=== PATIENT | male | born 1955 | race Caucasian/White ===

== ENCOUNTER 2016-08-04 21:20 | Observation (INO) | payer OTHER ==
[~2016-08-04] VITALS: Ht 185.4 cm; Wt 129.3 kg
[~2016-08-04 21:20] MED LIST: ADDERALL10 MG PO; ALBUTEROL2 PUFFS/17 IN; ALBUTEROL2.5 MG/NEB IN; ASPIRIN 81MG TA81 MG PO; ATORVASTATIN CA20 M1 PO; CELEBREX100 MG PO; FLEXERIL10 MG PO; IBU800 MG PO; LEVOTHYROXIN0.125 MG PO; LEVOTHYROXIN0.137 M1 PO; PERCOCET1 TA1 PO; PROPAFENONE HC150 MG PO; TYLENOL W/CODEI1 TA1 PO; ZOLPIDEM 10MG T10 MG PO
[2016-08-04 21:23] VITALS: BP 175/72
[2016-08-04] MEDS ORDERED: PROMETHEGAN25 MG PO (21:31)
--- NOTE | 2016-08-04 21:38 | Emergency Room Report ---
History of Present Illness Time Seen by [id number] Presenting Problem in Triage Pt arrived:Walked Presenting Problem:C/O VOMITING AND DIARRHEA, REPORTS VOMITED SMALL AMT OF BLOOD X 1 C/O WEAKNESS Onset of symptoms date/time:07/31/16/ or onset unknown for:MEDICAL HX UNKNOWN Treatment Prior to Arrival: DR. ESMER VEGA AND [facility] [employer]END[employer] Provided by :PHYSICIAN Sepsis Risk Assessment: Temp: 98.2 B/P: 175/72 MAP: 106 Pulse: 102 Resp: 18 Recent fever? N Clinical Suspician of Infection? N Mental Status: 1 - Regular (Normal Baseline) Sepsis Risk:Low Sepsis Risk Have you (or family members/close friends) recently traveled outside the [place]? N If Yes, where/when: Have you had exposure to infectious disease within the past month? N TB? Other? Specify: Source patient, RN notes reviewed, family, old records Exam Limitations no limitations Comment pt with recent oral surg for cancer and has not felt well for a few days and had fever and was started on abx and today with vomiting - no rash Cardiac Chest Pain Chest pain indicative of cardiac No Timing/Duration this evening Severity moderate ALLERGIES Coded Allergies: No Known Allergies (02/24/16) Home Medications Active Scripts OXYCODONE HCL/ACETAMINOPHEN (Percocet 10-325 MG Tablet) 1 TAB PO QIDP PRN pain #15 TAB Prov: 02/24/16 Reported Medications Levothyroxine Sodium (Levothyroxine 0.125MG) 0.125 MG PO DAILY PROPAFENONE HCL (Propafenone HCl) 150 MG PO TID #90 Atorvastatin Calcium 20 MG PO DAILY #30 Levothyroxine Sodium (Levothyroxine 0.137MG) 0.137 MG PO DAILY #30 Zolpidem Tartrate (Zolpidem 10MG) 10 MG PO QHS #30 ASPIRIN (Aspirin) 81 MG PO DAILY PROMETHAZINE HCL (Promethegan) 25 MG RC QID #10 History Medical History General CAD? No Angina: No NH: No Hypertension? No Hyperlipidemia? No CHF? No DVT? No PE? No COPD? No Asthma? No Anemia? No GERD? No Gastric ulcers? No GI Bleed? No Hernia? No Thyroid Problems? No Hypothyroidism? Yes CVA? No Seizures? No Diabetes? No Renal Insuffiency? No End Stage Renal Disease? No UTI? No Stones? No BPH? No GB Disease: No Nephritic Syndrome? No Asplenia? No Hepatitis? No Sickle Cell Disease? No Arthritis? No Migraines? No Cataracts? No Glaucoma? No MRSA? No HIV? No TB? No Anxiety? No Depression? No Cancer? Yes Site: MOUTH More? No Immunization Hx DT/Tetanus 1-4 YRS Flu NEVER Pneumonia NEVER Surgical Hx Previous Surgery?Y L SHOULDER R HAND APPENDECTOMY L FOOT Family History Family Hx Diabetes Yes CAD No Hypertension No Hyperlipidemia No Cancer No TB No Social History Smoking Hx Smoker: Never Smoker Tobacco: No Type N/A Alcohol Alcohol: Yes Drugs none Review of Systems All Other Systems Reviewed and Negative Constitutional denies fever Eyes denies drainage ENT see HPI. denies: ear pain, epistaxis, throat pain. Respiratory denies cough, denies shortness of breath, denies wheezing Cardiovascular denies chest pain, denies syncope Gastrointestinal see HPI, denies diarrhea, nausea, vomiting Genitourinary denies: dysuria, frequency, hesitancy, hematuria. Musculoskeletal denies back pain, denies joint pain, denies joint swelling, denies neck pain Skin denies rash Psychiatric/Neurological denies headache, denies seizure Physical Exam Vital Signs Vital Signs Date Time Temp Pulse Resp B/P Pulse O2 O2 Flow FiO2 Ox Delivery Rate 08/05 0026 79 18 100/55 93 08/04 2359 79 18 126/77 94 08/04 2347 18 08/04 2332 85 20 130/59 94 08/04 2227 94 18 134/57 97 08/04 2123 98.2 102 18 175/72 95 - WBC >12,000 or <4,000 or 10% bands? 2 or more SIRS Criteria Met? B/P:126/77 MAP:106 Creatinine >2.0? UA output<0.5ml/kg/hr for 2 hrs? Platelet count >100,000? Lactate >2.0mmol/1? INR >1.2 or PTT > than 60 sec? Evidence of Organ Dysfunction? Provider documented clinical suspician of infection? N Sepsis Criteria Count: 1 Sepsis Risk: Low Sepsis Risk General Appearance no apparent distress Eye Exam - bilateral eye PERRL, bilateral eye EOMI Comment no icterus Ear, Nose, Throat s/p oral surg Neck non-tender Respiratory Status No: respiratory distress. 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 No Results/Orders Laboratory Tests 08/04/162139: Lactic Acid 1.2 08/04/162139: Sodium 137, Potassium 3.9, Chloride 103, Carbon Dioxide 21 L, BUN 13, Creatinine 1.1, Estimated Creat Clear 124, Estimated GFR (MDRD) 68, Glucose 126 H, Calcium 9.0, Total Bilirubin 0.6, AST 124 H, ALT 158 H, Alkaline Phosphatase 124 H, Total Protein 7.4, Albumin 3.0 L, Globulin 4.4 H, Albumin/ Globulin Ratio 0.7 L, WBC 10.2, RBC 4.46 L, Hgb 14.1, Hct 41.3 L, MCV 92.6, RDW 13.7, Plt Count 156, MPV 8.7, Gran % 84.8 H, Gran # 8.7 H, Lymphocytes % 9.1 L, Monocytes % 4.6, Eosinophils % 1.4, Basophils % 0.2, Lymphocytes # 0.9, Monocytes # 0.5, Eosinophils # 0.1, Basophils # 0.0, PUBS MCHC 34.2, MCH 31.7 H Current Medication Orders Sig/Sahil Start time Last Medication Dose Route Stop Time Status Admin Morphine Sulfate 4 MG ONCE ONE 08/04 2344 DC 08/04 IV 08/04 Promethazine HCl 12.5 MG ONCE ONE 08/04 2344 DC 08/04 IV 08/04 Sodium Chloride 1,000 ML .Q1H1M 08/04 2344 DC 08/04 IV 08/055 234 Sodium Chloride 10 ML PRN PRN 08/04 2344 AC IV 08/05 2334 Sodium Chloride 25 ML ONCE ONE 08/04 2344 DC 08/04 IV 08/049 2348 Promethazine HCl 0 .STK-MED ONE 08/04 2337 DC .ROUTE Morphine Sulfate 0 .STK-MED ONE 08/04 2336 DC .ROUTE Sodium Chloride 1,000 ML .STK-MED ONE 08/04 2336 DC IV Ondansetron HCl 4 MG ONCE ONE 08/04 2144 DC 08/04 IV 08/04 2145 215 Sodium Chloride 10 ML PRN PRN 08/04 2144 AC IV 08/05 2132 Sodium Chloride 1,000 ML .Q1H1M 08/04 2144 DC 08/04 IV 08/04 2245 215 Sodium Chloride 10 ML PRN PRN 08/04 2144 AC IV 08/05 2132 Ondansetron HCl 0 .STK-MED ONE 08/05 2135 DC .ROUTE Sodium Chloride 1,000 ML .STK-MED ONE 08/05 2135 DC IV Orders Procedure Date/time Status DIET-NOTHING BY MOUTH 08/05 B Active CULTURE, BLOOD 08/04 2137 Active URINALYSIS/COMPLETE 08/04 2137 Active LACTIC ACID 08/04 2137 Complete IV SALINE LOCK 08/04 2133 Active COMPLETE METABOLIC PANEL 08/04 2133 Complete CBC WITH AUTO DIFF 08/04 2133 Complete Departure Departure Time of Disposition 0104 Disposition DC Home or Self Care(routine) Clinical Impression Primary Impression: Vomiting Qualifiers: Vomiting type: unspecified Vomiting Intractability: non-intractable Nausea presence: with nausea Qualified Code: R11.2 - Nausea with vomiting, unspecified Condition STABLE Referrals Diego Olson MD (Family) Patient Instructions DI for Vomiting -- Adult Additional Instructions fluids and see pcp this am Discharge Counseling Counseled pt/family regarding diagnosis, test results, medications/RX, follow up needs ED Critical Care Critical Care No at 0105
[2016-08-04 22:01] LABS: HEMOGLOBIN 14.1 g/dL (14.1-18.0); LYMPH # 0.9 K/mm3 (0.7-4.5); LYMPH % 9.1 % (10-50)
[2016-08-05 10:29] VITALS: BP 120/64
[2016-08-05 10:45] LABS: LYMPH # 1.4 K/mm3 (0.7-4.5); LYMPH % 14.8 % (10-50)
--- NOTE | 2016-08-05 10:46 | PHARMACY CLINIC NOTE ---
Patient Demographics Patient Demographics Admission date: 08/05/16 Date: 08/05/16 Time: 1046 Allergies Coded Allergies: No Known Allergies (02/24/16) HEIGHT- FT: 6 IN: 1.00 K.276 VTE General Information Labs: Laboratory Tests 08/04 2140 Hematology Hgb (14.1 - 18.0 g/dL) 14.1 Hct (42.0 - 52.0 %) 41.3 L Plt Count (142 - 424 K/mm3) 156 Disclaimer The following section includes nursing documentation that has been pulled in for pharmacy review. VTE prophylaxis NQF [id number] VTE prophylaxis ordered? Yes Type of prophylaxis/treatment: TREE at 1043
[2016-08-05 11:13] VITALS: BP 120/64
[2016-08-05] MEDS ORDERED: PREDNISONE 20MG20 MG PO (11:26)
[2016-08-05] MEDS ORDERED: METOPROLOL SUCC25 M2 PO (11:30)
[2016-08-05] MEDS ORDERED: METOPROLOL SUCC25 M1 PO (11:30)
[2016-08-05] MEDS ORDERED: AMBIEN 10MG TAB10 MG PO (11:31)
[2016-08-05] MEDS ORDERED: AUGMENTIN 875-1 EACH PO (11:32)
[2016-08-05] MEDS ORDERED: NORCO 325 MG-51 TAB PO (11:32)
--- NOTE | 2016-08-05 14:31 | RADIOLOGY REPORT PS360 ---
CHEST(2 VIEWS-NOT PORTABLE) HISTORY: dehydration ORDERING PHYSICIAN: Diego Olson MD PATIENT AGE: 61 years COMPARISON: 05/31/2007 FINDINGS: The cardiomediastinal silhouette and pulmonary vascularity are within normal limits. The lungs are clear without infiltrates, suspicious nodules, or pleural effusions. No acute bony abnormalities. IMPRESSION: Negative chest, no acute finding
[2016-08-05 16:00] VITALS: BP 116/65
[2016-08-05 17:38] LABS: AEROMONAS NOT DETECTED (NOT DETECTE); ASTROVIRUS NOT DETECTED (NOT DETECTE); CYCLOSPORA CAYETANENSIS NOT DETECTED (NOT DETECTE); E COLI O157 NOT DETECTED (NOT DETECTE); ENTEROAGGREGATIVE E COLI NOT DETECTED (NOT DETECTE); ENTEROPATHOGENIC E COLI NOT DETECTED (NOT DETECTE); ENTEROTOXIGENIC E COLI NOT DETECTED (NOT DETECTE); NOROVIRUS NOT DETECTED (NOT DETECTE); SAPOVIRUS NOT DETECTED (NOT DETECTE); SHIGA-LIKE TOXIN PROD. E COLI NOT DETECTED (NOT DETECTE); SHIGELLA/ENTEROINVASIVE E COLI NOT DETECTED (NOT DETECTE); VIBRIO CHOLERAE NOT DETECTED (NOT DETECTE)
[2016-08-05 20:33] VITALS: BP 111/63
[2016-08-06 04:36] VITALS: BP 103/53
[2016-08-06 06:14] LABS: HEMOGLOBIN 12.2 g/dL (14.1-18.0); LYMPH # 1.2 K/mm3 (0.7-4.5); LYMPH % 16.5 % (10-50)
[2016-08-06 07:32] VITALS: BP 113/56
--- NOTE | 2016-08-06 07:51 | ACUTE CARE PROGRESS NOTE (QUA) ---
Progress Notes Subjective Date 08/06/16 Time 0750 Note Patient feels a little better but has not urinated spontaneously and continues to have significant amounts of diarrhea. PCR testing was unremarkable. On the positive side heart rate and blood pressure normalized. Lungs are clear, heart rate regular. Abdomen is soft and nontender. Objective Findings Last VS-Temp:97.7 B/P:103/53 Pulse:74 Resp:18 SaO2:96 ROOM AIR Last weight lbs:285 oz:0 K.276 Method:Floor Scales Assessment/Plan Problem List 1. Dehydration 2. Diarrhea 3. Tachycardia Patient condition Improving Plan: dehydration and tachycardia have resolved. Diarrhea still a problem. Given his antibiotic exposure I will begin Flagyl and probiotic This inpt stay is expected to cross 2 MNs from start of care No at 0751
[2016-08-06 15:41] VITALS: BP 113/61
[2016-08-06 19:29] VITALS: BP 126/55
[2016-08-07 03:26] VITALS: BP 116/58
[2016-08-07] MEDS ORDERED: FLAGYL500 M1 PO (07:22)
[2016-08-07] MEDS ORDERED: FLORASTOR250 M1 PO (07:22)
[2016-08-07] MEDS ORDERED: LOMOTIL 0.025 M1 TAB PO (07:23)
--- NOTE | 2016-08-07 07:24 | ACUTE CARE PROGRESS NOTE (QUA) ---
Progress Notes Subjective Date 08/07/16 Time 0723 Note Overall feeling better, diarrhea has essentially resolved this morning. Lungs clear, abdomen soft, nontender. Vital signs unremarkable the Assessment/Plan Problem List 1. Dehydration 2. Diarrhea 3. Tachycardia Patient condition Improving Plan: initiate discharge plan This inpt stay is expected to cross 2 MNs from start of care No at 0724
--- NOTE | 2016-08-07 07:25 | DISCHARGE SUMMARY STANDARD ---
Demographics Admit date: 08/05/16 Discharge date: 08/07/16 History of present illness History of present illness Patient was admitted from my office with diarrhea, dehydration and tachycardia, recently exposed to antibiotics and recently underwent surgery for head/neck cancer. Please see scanned H&P for details Hospital Course Hospital Course: Patient was admitted, IV fluids were given, fluid resuscitation accomplished. No problems with fluid infusions and hydration status improved very nicely. Flagyl and probiotics were started for his diarrhea issues. He improved in a very slow but stepwise fashion and this morning it finally resolved his diarrhea to a large extent. Will be discharged home on Flagyl, probiotics and Lomotil p.r.n., follow up with oncology. Diet advancement instructions were given. Discharge diagnoses Problem List 1. Dehydration 2. Diarrhea 3. Tachycardia Medications Medications: Discharge meds are as noted. Follow up Follow up in office in: 7 DAYS with: PARUL LYMAN at [phone]
[2016-08-07 08:00] VITALS: BP 132/61
[2016-08-07 10:09] VITALS: BP 132/61
--- OUTSIDE RECORDS SUMMARY | 2016-08-15 02:06 | External Medical Summary Rpt ---
Author Author [facility] Organization [facility] Address Unknown Phone Unavailable Care Team Providers Care Materials Management Supervisor Name Role Phone ELISABET, (REF) PCP [phone] Encounter [facility] [id number] Date(s): 06/25/16 - 07/02/16 [facility] [address] [place] [id number]- Discharge Disposition: IP Self Care / Home Attending Physician: ANDREZ STAFFORD MD-ELIZA Admitting Physician: ANDREZ STAFFORD MD-ELIZA Referring Physician: ANDREZ STAFFORD MD-ELIZA Reason for Visit MALIGNANT NEOPLASM OF PALATE, UNSPECIFIED Vital Signs Most recent 1 2 3 to oldest [Reference Range]: Temperature Axillary Axillary (07/02/16 Oral Source (07/02/16 4:00 AM) 12:00 AM) (07/01/16 7:00 PM) Temperature Fahrenheit Fahrenheit Fahrenheit Mode (07/02/16 4:00 AM) (07/02/16 12:00 (07/01/16 7:00 PM) AM) Temperature, 98.5 Deg F 98.4 Deg F 99.0 Deg F Fahrenheit (07/02/16 7:30 AM) (07/02/16 4:00 AM) (07/02/16 12:00 [96.8-99.7 AM) Deg F] Clinical 36.9 Deg C 36.9 Deg C 37.2 Deg C Temperature, (07/02/16 7:30 AM) (07/02/16 4:00 AM) (07/02/16 12:00 C AM) Heart Rate, 62 bpm 62 bpm 69 bpm Apical (07/02/16 9:36 AM) (07/02/16 9:36 AM) (07/02/16 5:50 AM) [60-100 bpm] Heart Rate 62 bpm 65 bpm 64 bpm (3/16/17 Monitored (07/02/16 7:30 AM) (07/02/16 4:00 AM) 12:00 AM) [60-100 bpm] Respiratory 16 Breaths/Min 18 Breaths/Min 16 Breaths/Min Rate [14-20 (07/02/16 7:30 AM) (07/01/16 7:30 PM) (07/01/16 3:30 PM) Breaths/Min] Blood 121/62 mmHg 137/61 mmHg 122/64 mmHg Pressure (07/02/16 7:30 AM) (07/02/16 4:00 AM) (07/02/16 12:00 [90-140/60-9 AM) 0 mmHg] Mean 80 83 82 (07/02/16 12:00 Arterial (07/02/16 7:30 AM) (07/02/16 4:00 AM) AM) Pressure (MAP)-BMDI Oxygen 98 % 96 % 95 % Saturation (07/01/16 8:00 PM) (06/30/16 7:00 PM) (06/30/16 8:39 AM) [94-100 %] Oxygen Room air Room air (07/01/16 Room air Therapy Mode (07/02/16 8:23 AM) 10:42 PM) (07/01/16 8:00 PM) Oxygen Flow 4 Liter/Min 3 Liter/Min 3 Liter/Min Rate (06/27/16 8:00 AM) (06/26/16 8:54 PM) (06/26/16 4:13 PM) FiO2 Nursing 21 % 21 % (06/28/16 3:38 PM) (06/28/16 8:11 AM) Height Measured Source (06/25/16 2:37 PM) Height Entry [place] Format (06/25/16 2:37 PM) Height/Lengt 73 Inch h URDU (06/25/16 2:37 PM) CLINICALHEIG 185.42 cm HT (06/25/16 2:37 PM) Weight Standing scale Source (06/25/16 2:37 PM) Weight Entry [place] Format (06/25/16 2:37 PM) Weight 307 lb Portuguese lb (06/25/16 2:37 PM) CLINICALWEIG 139.55 kg HT (06/25/16 2:37 PM) Body Surface 2.58 m2 Area (BSA) (06/25/16 2:37 PM) Body Mass 40.6 kg/m2 Index *>HHI* [19.0-24.0 (06/25/16 2:37 PM) kg/m2] [place] Body 79 kg Weight (06/25/16 2:37 PM) Problem List Condition Effective Status Health Informant Dates Status Atrial Active fibrillation (Confirmed) High Active cholesterol( Confirmed) HTN Active (hypertensio n)(Confirmed ) Hypothyroidi Active sm(Confirmed ) Mouth Active cancer(Confi rmed) Sleep Active apnea(Confir med) Torn Active meniscus(Con firmed) Allergies, Adverse Reactions, Alerts No Known Allergies Medications acetaminophen-oxyCODONE (acetaminophen-oxyCODONE 325 mg-7.5 mg oral tablet) 1-2 Tab, Oral, Every 4 Hours, As Needed, as needed for pain, Refills: 0 amoxicillin-clavulanate (Augmentin XR 1000 mg oral tablet, extended release)1 Tab, Oral, Two Times A Day, 10 Day(s), Refills: 0Ordering provider: ANDREZ STAFFORD MD-ELIZA chlorhexidine topical (Peridex 0.12% mucous membrane liquid)7 mL, Swish and Spit , Three Times A Day, (swish and spit; do not swallow), Refills: 0Ordering provider: ANDREZ STAFFORD MD-ELIZA levothyroxine (levothyroxine 137 mcg (0.137 mg) oral tablet)1 Tab, Oral, Every Day, Refills: 0 metoprolol (Metoprolol Tartrate 25 mg oral tablet) Oral, Two Times A Day, Refills: 0 PRAVAstatin (pravastatin 10 mg oral tablet) 1 Tab, Oral, Every Day, Refills: 0 propafenone (propafenone 150 mg oral tablet) Oral, Every 8 Hours, Refills: 0 zolpidem (Ambien 10 mg oral tablet)1 Tab, Oral, At Bedtime, As Needed, for sleep, Refills: 0 Results GENERAL CHEMISTRY Most recent 1 to oldest [Reference Range]: Sodium Level 139 mmol/L [136-146 (07/01/16 6:42 AM) mmol/L] Potassium 4.2 mmol/L Level (07/01/16 6:42 AM) [3.5-5.1 mmol/L] Chloride 102 mmol/L Level (07/01/16 6:42 AM) [102-112 mmol/L] Carbon 26 mmol/L Dioxide (07/01/16 6:42 AM) Level [21-32 mmol/L] Anion Gap 15 [9-20] (07/01/16 6:42 AM) Glucose 101 mg/dL Level (07/01/16 6:42 AM) [74-106 mg/dL] Blood Urea 9 mg/dL Nitrogen (07/01/16 6:42 AM) [7-22 mg/dL] Creatinine 0.90 mg/dL Level (07/01/16 6:42 AM) [0.70-1.30 mg/dL] eGFR 104 mL/min/1.73m2 [>=60 (07/01/16 6:42 AM) mL/min/1.73m 2] eGFR 86 mL/min/1.73m2 NonAfrican (07/01/16 6:42 AM) [>=60 mL/min/1.73m 2] Bun/Creatini 10.0 ne (07/01/16 6:42 AM) [8.0-20.0] Calcium 8.9 mg/dL Level (07/01/16 6:42 AM) [8.5-10.1 mg/dL] Potassium 4.1 mmol/L POC [3.5-4.9 (06/26/16 7:00 AM) mmol/L] HEMATOLOGY Most recent 1 to oldest [Reference Range]: WBC [4.2-9.1 11.5 K/uL K/uL] *HI* (07/01/16 6:42 AM) RBC 4.61 Million/uL [4.63-6.08 *LOW* Million/uL] (07/01/16 6:42 AM) Hgb 14.6 g/dL [13.7-17.5 (07/01/16 6:42 AM) g/dL] Hct 44.0 % [40.1-51.0 (07/01/16 6:42 AM) %] MCV 95.4 fL [79.0-94.8 *HI* fL] (07/01/16 6:42 AM) MCH 31.7 pg [25.6-32.2 (07/01/16 6:42 AM) pg] MCHC 33.2 Gram/dL [32.2-36.5 (07/01/16 6:42 AM) Gram/dL] Platelet 167 K/uL Count (07/01/16 6:42 AM) [163-369 K/uL] MPV 12.5 fL [9.4-12.4 *HI* fL] (07/01/16 6:42 AM) RDW 14.0 % [11.6-14.4 (07/01/16 6:42 AM) %] Neut % 79.4 % [34.0-71.0 *HI* %] (07/01/16 6:42 AM) Neut # 9.11 K/uL [1.56-6.13 *HI* K/uL] (07/01/16 6:42 AM) Lymph % 11.0 % [19.3-53.1 *LOW* %] (07/01/16 6:42 AM) Lymph # 1.26 x10(3)/uL [1.00-3.90 (07/01/16 6:42 AM) x10(3)/uL] [place] % 6.8 % [3.0-9.0 %] (07/01/16 6:42 AM) [place] # 0.78 K/uL [0.16-1.00 (07/01/16 6:42 AM) K/uL] Eos % 2.3 % [0.0-7.0 %] (07/01/16 6:42 AM) Eos # 0.26 x10(3)/uL [0.00-0.80 (07/01/16 6:42 AM) x10(3)/uL] Baso % 0.2 % [0.0-1.5 %] (07/01/16 6:42 AM) Baso # 0.02 x10(3)/uL [0.00-0.20 (07/01/16 6:42 AM) x10(3)/uL] Slide Review No (07/01/16 6:42 AM) IG# 0.04 x10(3)/uL [0.00-0.05 (07/01/16 6:42 AM) x10(3)/uL] IG% 0.30 % [0.00-0.60 (07/01/16 6:42 AM) %] ENDOCRINOLOGY Most recent 1 to oldest [Reference Range]: TSH 7.660 mcInt Units/mL [0.358-3.740 *HI* mcInt (07/01/16 6:42 AM) Units/mL] Immunizations No data available for this section Procedures Procedure Date Related Body Site Diagnosis left knee surgery; meniscus 02/18 and pateller 07/02 Social History Social History Response Type Smoking Status Never smoker Assessment and Plan Extracted from: Title: JF Daily Note Author: SERGIO CABAN, Date: 07/02/16 MD GWENDOLYN-INT SubjectiveHOSPITALIST / INTERNAL MEDICINE CONSULT:61 yr old M - underwent surgery for Oral cancer. We are asked to see for uncontrolled BP.Pt is awake and alert. is at bed side. No CP, No SOB. Quite frustrated for multiple other things. No fever, + Nausia, no vomitting.W 3 AUSEARELATED TO POST NASAL DRAINAGE+ FLATUSTOLERATING PO BUT POOR APPETITENO CP OR VITALE OR SOA OR BMth 16bp betterno cp or soano nausea W NAUSEA RELATED TO POST NASAL DRAINAGE + FLATUS TOLERATING PO BUT POOR APPETITE NO CP OR VITALE OR SOA OR BM th 07/02 bp better no cp or soa no nausea Health StatusAllergies:Allergic Reactions (Selected)No Known Allergies,Allergies (1) ActiveReactionNo Known AllergiesNone DocumentedCurrent medications: (Selected)Inpatient MedicationsOrderedAfrin 0.05% nasal spray: 2 [place], Nostrils Both, A3CLyuant: 5 mg, Oral, At Bedtime, PRN: SleepDextrose 5% with 0.45% NaCl 1,000 mL: 40 mL/Hr, IntraVENousFlorastor: 250 mg, Oral, BIDLopressor: 25 mg, Oral, BIDNorco 7.5 mg-325 mg oral tablet: 1 Tab, Oral, Q4H, PRN: Pain (Mild 1-3)Norvasc: 2.5 mg, Oral, DailyPRAVAstatin: 10 mg, Oral, DailyPepcid: 20 mg, IV Push, H83GCeyespul 5/325: 1.5 Tab, Oral, Q4H, PRN: Pain (Moderate 4-6)Peridex 0.12% mucous membrane liquid: 15 mL, Swish and Spit, QIDPhenergan: 12.5 mg, IV Push, Q6H, PRN: Nausea/VomitingZofran: 4 mg, Oral, Q6H, PRN: Nausea/Vomitingacetaminophen-HYDROcodone 325 mg-7.5 mg oral tablet: 2 Tab, Oral, Q4H, PRN: Pain (Moderate 4-6)ampicillin-sulbactam + Sodium Chloride 0.9% 100 mL: 3 Gram, 200 mL/Hr, IV Piggyback, V1OtwsEBGpld: 0.05 mg, Oral, TIDfentaNYL: 25 mcg, IV Push, Q30Min, PRN: Breakthrough PainhydrALAZINE: 10 mg, IV Push, Q6H, PRN: Hypertensionlabetalol: 5 mg, IV Push, Q10Min, PRN: Hypertensionlevothyroxine: 112 mcg, Oral, Dailylevothyroxine: 25 mcg, Oral, Dailymorphine: 2 mg, IV Push, Q1H, PRN: Pain (Moderate 4-6)morphine: 4 mg, IV Push, Q1H, PRN: Pain (Severe 7-10)oxyCODONE: 10 mg, Oral, Q4H, PRN: Breakthrough PainoxyCODONE: 5 mg, Oral, Q4H, PRN: Breakthrough Painpropafenone: 150 mg, Oral, S2Zoypqty chloride 0.9% injectable solution: 10 mL, IV Push, See Comment, PRN: Other (See Comment)Documented MedicationsDocumentedAmbien 10 mg oral tablet: 1 Tab, Oral, At Bedtime, PRN: for sleep, 0 Refill(s)Metoprolol Tartrate 25 mg oral tablet: Tab, Oral, BID, 0 Refill(s)acetaminophen-oxyCODONE 325 mg-7.5 mg oral tablet: Tab, Oral, Q6H, PRN: as needed for pain, 0 Refill(s)levothyroxine 137 mcg (0.137 mg) oral tablet: 1 Tab, Oral, Daily, 30 Tab, 0 Refill(s)pravastatin 10 mg oral tablet: 1 Tab, Oral, Daily, 30 Tab, 0 Refill(s)propafenone 150 mg oral tablet: Tab, Oral, Q8H, 0 Refill(s),Home Medications (6) Activeacetaminophen-oxyCODONE 325 mg-7.5 mg oral tablet , PRN, Oral, X1MJnhvux 10 mg oral tablet 10 mg = 1 Tab, PRN, Oral, At Bedtimelevothyroxine 137 mcg (0.137 mg) oral tablet 137 mcg = 1 Tab, Oral, DailyMetoprolol Tartrate 25 mg oral tablet , Oral, BIDpravastatin 10 mg oral tablet 10 mg = 1 Tab, Oral, Dailypropafenone 150 mg oral tablet , Oral, Q8H,Medications (27) ActiveScheduled: (12)amLODIPine 2.5 mg tab 2.5 mg 1 Tab, Oral, Dailyampicillin/sulbactam + NaCl 0.9% 100 mL 3 Gram, IV Piggyback, O4Ywhapucpbutlma 0.12% liq 15 mL 15 mL, Swish and Spit, QIDcloNIDine 0.1 mg tab 0.05 mg 0.5 Tab, Oral, TIDfamotidine 20 mg/2 mL inj 20 mg 2 mL, IV Push, Y78Wxfqpldcrzxwyk 112 mcg tab 112 mcg 1 Tab, Oral, Dailylevothyroxine 25 mcg tab 25 mcg 1 Tab, Oral, Dailymetoprolol tartrate 25 mg tab 25 mg 1 Tab, Oral, BIDoxymetazoline 0.05% nasal spray 15 mL 2 [place], Nostrils Both, C8DZDPFIpdbmgu sodium 10 mg tab 10 mg 1 Tab, Oral, Dailypropafenone 150 mg tab 150 mg 1 Tab, Oral, Y9Aekkntaukrvawn boulardii 250 mg cap 250 mg 1 Cap, Oral, BIDContinuous: (1)D5w/NaCl 0.45% 1,000 mL 1,000 mL, IntraVENous, 40 mL/HrPRN: (14)#NaCl 0.9% *FLUSH* inj 10 mL 10 mL, IV Push, See Commentacetaminophen/HYDROcodone 325/7.5 mg tab 2 Tab, Oral, I5Lpyvgdztmsfpai/HYDROcodone 325/7.5 mg tab 1 Tab, Oral, V5Tsvyrpcugppcxl/oxyCODONE 325/5 mg tab 1.5 Tab, Oral, D1PgxivqZXU 100 mcg/2 mL inj 25 mcg 0.5 mL, IV Push, T78LbkznilOQRURFE 20 mg/1 mL inj 10 mg 0.5 mL, IV Push, U1Aiqgbpgumm 20 mg/4 mL inj *SYRINGE* 5 mg 1 mL, IV Push, D46Vyjxqofpsup 2 mg/1 ml cpjt inj 2 mg 1 mL, IV Push, P6Amcsqnxzr 4 mg/1 mL cpjt inj 4 mg 1 mL, IV Push, U1Dhxygfkxrtsb 4 mg tab 4 mg 1 Tab, Oral, F2CfbvMQBONK 5 mg tab 10 mg 2 Tab, Oral, R1QrwcINXNTV 5 mg tab 5 mg 1 Tab, Oral, G1Nkbgqkzsdkxxf 25 mg/1 mL inj 12.5 mg 0.5 mL, IV Push, S5Qbspynxhi 5 mg tab 5 mg 1 Tab, Oral, At BedtimeProblem list:MedicalHTN (hypertension) / SNOMED CT 7785118462 / ConfirmedSleep apnea / SNOMED CT 769915002 / ConfirmedAtrial fibrillation / SNOMED CT 8949965610 / ConfirmedTorn meniscus / SNOMED CT 3619246885 / ConfirmedHigh cholesterol / SNOMED CT 90125124 / ConfirmedMouth cancer / SNOMED CT 416967180 / ConfirmedHypothyroidism / SNOMED CT 402473479 / Confirmed,Active Problems (7)Atrial fibrillation High cholesterol HTN (hypertension) Hypothyroidism Mouth cancer Sleep apnea Torn meniscus saccharomyces boulardii 250 mg cap 250 mg 1 Cap, Oral, BID Continuous: (1) D5w/NaCl 0.45% 1,000 mL 1,000 mL, IntraVENous, 40 mL/Hr PRN: (14) #NaCl 0.9% *FLUSH* inj 10 mL 10 mL, IV Push, See Comment acetaminophen/HYDROcodone 325/7.5 mg tab 2 Tab, Oral, Q4H acetaminophen/HYDROcodone 325/7.5 mg tab 1 Tab, Oral, Q4H acetaminophen/oxyCODONE 325/5 mg tab 1.5 Tab, Oral, Q4H fentaNYL 100 mcg/2 mL inj 25 mcg 0.5 mL, IV Push, Q30Min hydrALAZINE 20 mg/1 mL inj 10 mg 0.5 mL, IV Push, Q6H labetalol 20 mg/4 mL inj *SYRINGE* 5 mg 1 mL, IV Push, Q10Min morphine 2 mg/1 ml cpjt inj 2 mg 1 mL, IV Push, Q1H morphine 4 mg/1 mL cpjt inj 4 mg 1 mL, IV Push, Q1H ondansetron 4 mg tab 4 mg 1 Tab, Oral, Q6H oxyCODONE 5 mg tab 10 mg 2 Tab, Oral, Q4H oxyCODONE 5 mg tab 5 mg 1 Tab, Oral, Q4H promethazine 25 mg/1 mL inj 12.5 mg 0.5 mL, IV Push, Q6H zolpidem 5 mg tab 5 mg 1 Tab, Oral, At Bedtime Problem list: Medical HTN (hypertension) / SNOMED CT 5402905338 / Confirmed Sleep apnea / SNOMED CT 897004788 / Confirmed Atrial fibrillation / SNOMED CT 1221084380 / Confirmed Torn meniscus / SNOMED CT 3701781395 / Confirmed High cholesterol / SNOMED CT 08301879 / Confirmed Mouth cancer / SNOMED CT 165501679 / Confirmed Hypothyroidism / SNOMED CT 808187345 / Confirmed, Active Problems (7) Atrial fibrillation High cholesterol HTN (hypertension) Hypothyroidism Mouth cancer Sleep apnea Torn meniscus ObjectiveVS/MeasurementsVitals Signs (last 24 hrs) Last Charted Minimum MaximumTemp 98.5 (JUL 02 07:30)97.9 (JUL 01 11:15)99.4 (JUL 01 15:30)Apical HR 62 (JUL 02 09:36)62 (JUL 02 09:36)85 (JUL 01 21:41)Mon HR 62 (JUL 02 07:30)62 (JUL 02 07:30)67 (JUL 01 11:15)Resp Rate 16 (JUL 02 07:30)16 (JUL 01 11:15)18 (JUL 01 19:30)SBP 121 (JUL 02 07:30)121 (JUL 02 07:30)H 171 (JUL 01 11:15)DBP 62 (JUL 02 07:30)61 (JUL 02 04:00)H 94 (JUL 01 11:15)MAP 80 (JUL 02 07:30)80 (JUL 02 07:30)113 (JUL 01 11:15)SpO2 98 (JUL 01 20:00)98 (JUL 01 20:00)98 (JUL 01 20:00)General: Alert and oriented, No acute distress.Eye: Pupils are equal, round and reactive to light, Normal conjunctiva.HENT: Normocephalic, S/P Oral surgery.Neck: Supple, Non-tender, No jugular venous distention.Respiratory: Lungs are clear to auscultation, Respirations are non-labored, Breath sounds are equal.Cardiovascular: Normal rate, Regular rhythm, No gallop.Gastrointestinal: Soft, Non-tender, Non-distended, Normal bowel sounds.Musculoskeletal: Normal range of motion, No tenderness.Integumentary: Warm.Neurologic: Alert, Oriented, Normal motor function, No focal deficits.Psychiatric: Cooperative. Integumentary: Warm. Neurologic: Alert, Oriented, Normal motor function, No focal deficits. Psychiatric: Cooperative. Results Review No Radiology Results FoundNo qualifying data available Impression and PlanAssessment and Plan: Diagnosis.Accelerated HTN - Adjust Meds - Continue BBlocker and add 2.5 mg of Norvasc.P- A-Fib - now NSR - continue to monitor.HPL / Hypothyroid - continue home MedsOSA - Night use of C-PAPPLANoff of afrin so bp should be ok on usual home medsfollow up with pcp for bp check in 1-2 weeksd//w patient KOMLA - Night use of C-PAP PLAN off of afrin so bp should be ok on usual home meds follow up with pcp for bp check in 1-2 weeks d//w patient Extracted from: Title: JF Daily Note Author: SERGIO CABAN, Date: 07/01/16 MD GWENDOLYN-INT SubjectiveHOSPITALIST / INTERNAL MEDICINE CONSULT:61 yr old M - underwent surgery for Oral cancer. We are asked to see for uncontrolled BP.Pt is awake and alert. is at bed side. No CP, No SOB. Quite frustrated for multiple other things. No fever, + Nausia, no vomitting.W 3 /15NAUSEARELATED TO POST NASAL DRAINAGE+ FLATUSTOLERATING PO BUT POOR APPETITENO CP OR VITALE OR SOA OR BM W 3 /15 NAUSEA RELATED TO POST NASAL DRAINAGE + FLATUS TOLERATING PO BUT POOR APPETITE NO CP OR VITALE OR SOA OR BM Health StatusAllergies:Allergic Reactions (Selected)No Known Allergies,Allergies (1) ActiveReactionNo Known AllergiesNone DocumentedCurrent medications: (Selected)Inpatient MedicationsOrderedAfrin 0.05% nasal spray: 2 [place], Nostrils Both, E6NOipzcs: 5 mg, Oral, At Bedtime, PRN: SleepDextrose 5% with 0.45% NaCl 1,000 mL: 40 mL/Hr, IntraVENousLopressor: 25 mg, Oral, BIDNorco 7.5 mg-325 mg oral tablet: 1 Tab, Oral, Q4H, PRN: Pain (Mild 1-3)Norvasc: 2.5 mg, Oral, DailyPRAVAstatin: 10 mg, Oral, DailyPercocet 5/325: 1.5 Tab, Oral, Q4H, PRN: Pain (Moderate 4-6)Peridex 0.12% mucous membrane liquid: 15 mL, Swish and Spit, QIDPhenergan: 12.5 mg, IV Push, Q6H, PRN: Nausea/VomitingZofran: 4 mg, Oral, Q6H, PRN: Nausea/Vomitingacetaminophen-HYDROcodone 325 mg-7.5 mg oral tablet: 2 Tab, Oral, Q4H, PRN: Pain (Moderate 4-6)ampicillin-sulbactam + Sodium Chloride 0.9% 100 mL: 3 Gram, 200 mL/Hr, IV Piggyback, R8JbmvXVPpxc: 0.05 mg, Oral, TIDfentaNYL: 25 mcg, IV Push, Q30Min, PRN: Breakthrough PainhydrALAZINE: 10 mg, IV Push, Q6H, PRN: Hypertensionlabetalol: 5 mg, IV Push, Q10Min, PRN: Hypertensionlevothyroxine: 112 mcg, Oral, Dailylevothyroxine: 25 mcg, Oral, Dailymorphine: 2 mg, IV Push, Q1H, PRN: Pain (Moderate 4-6)morphine: 4 mg, IV Push, Q1H, PRN: Pain (Severe 7-10)oxyCODONE: 10 mg, Oral, Q4H, PRN: Breakthrough PainoxyCODONE: 5 mg, Oral, Q4H, PRN: Breakthrough Painpropafenone: 150 mg, Oral, S9Uiuvnor chloride 0.9% injectable solution: 10 mL, IV Push, See Comment, PRN: Other (See Comment)Documented MedicationsDocumentedAmbien 10 mg oral tablet: 1 Tab, Oral, At Bedtime, PRN: for sleep, 0 Refill(s)Metoprolol Tartrate 25 mg oral tablet: Tab, Oral, BID, 0 Refill(s)acetaminophen-oxyCODONE 325 mg-7.5 mg oral tablet: Tab, Oral, Q6H, PRN: as needed for pain, 0 Refill(s)aspirin 81 mg oral tablet: 1 Tab, Oral, Daily, 30 Tab, 0 Refill(s)levothyroxine 137 mcg (0.137 mg) oral tablet: 1 Tab, Oral, Daily, 30 Tab, 0 Refill(s)pravastatin 10 mg oral tablet: 1 Tab, Oral, Daily, 30 Tab, 0 Refill(s)propafenone 150 mg oral tablet: Tab, Oral, Q8H, 0 Refill(s),Home Medications (7) Activeacetaminophen-oxyCODONE 325 mg-7.5 mg oral tablet , PRN, Oral, H6LCyrbpo 10 mg oral tablet 10 mg = 1 Tab, PRN, Oral, At Bedtimeaspirin 81 mg oral tablet 81 mg = 1 Tab, Oral, Dailylevothyroxine 137 mcg (0.137 mg) oral tablet 137 mcg = 1 Tab, Oral, DailyMetoprolol Tartrate 25 mg oral tablet , Oral, BIDpravastatin 10 mg oral tablet 10 mg = 1 Tab, Oral, Dailypropafenone 150 mg oral tablet , Oral, Q8H,Medications (25) ActiveScheduled: (10)amLODIPine 2.5 mg tab 2.5 mg 1 Tab, Oral, Dailyampicillin/sulbactam + NaCl 0.9% 100 mL 3 Gram, IV Piggyback, T4Hnvjldxmdoygem 0.12% liq 15 mL 15 mL, Swish and Spit, QIDcloNIDine 0.1 mg tab 0.05 mg 0.5 Tab, Oral, TIDlevothyroxine 112 mcg tab 112 mcg 1 Tab, Oral, Dailylevothyroxine 25 mcg tab 25 mcg 1 Tab, Oral, Dailymetoprolol tartrate 25 mg tab 25 mg 1 Tab, Oral, BIDoxymetazoline 0.05% nasal spray 15 mL 2 [place], Nostrils Both, K6XTTXVTyhnoiy sodium 10 mg tab 10 mg 1 Tab, Oral, Dailypropafenone 150 mg tab 150 mg 1 Tab, Oral, D4RYzjqqahabb: (1)D5w/NaCl 0.45% 1,000 mL 1,000 mL, IntraVENous, 40 mL/HrPRN: (14)#NaCl 0.9% *FLUSH* inj 10 mL 10 mL, IV Push, See Commentacetaminophen/HYDROcodone 325/7.5 mg tab 2 Tab, Oral, S0Yntpibwtzmebnb/HYDROcodone 325/7.5 mg tab 1 Tab, Oral, L0Iorfqdtzpbseuu/oxyCODONE 325/5 mg tab 1.5 Tab, Oral, M0AkkqtbXQZ 100 mcg/2 mL inj 25 mcg 0.5 mL, IV Push, K15KxixgewYPWWZCX 20 mg/1 mL inj 10 mg 0.5 mL, IV Push, N3Flmzooenlg 20 mg/4 mL inj *SYRINGE* 5 mg 1 mL, IV Push, J07Ledphrqfvhc 2 mg/1 ml cpjt inj 2 mg 1 mL, IV Push, P7Hjacobpxv 4 mg/1 mL cpjt inj 4 mg 1 mL, IV Push, Y4Zmwazgoyvgse 4 mg tab 4 mg 1 Tab, Oral, T4PbltFSKWZR 5 mg tab 10 mg 2 Tab, Oral, T7QefpCXSMDJ 5 mg tab 5 mg 1 Tab, Oral, J1Sqmxoxyjgfzsx 25 mg/1 mL inj 12.5 mg 0.5 mL, IV Push, O7Mmvfdllpt 5 mg tab 5 mg 1 Tab, Oral, At BedtimeProblem list:MedicalHTN (hypertension) / SNOMED CT 6288663144 / ConfirmedSleep apnea / SNOMED CT 910295074 / ConfirmedAtrial fibrillation / SNOMED CT 4100463935 / ConfirmedTorn meniscus / SNOMED CT 3401782014 / ConfirmedHigh cholesterol / SNOMED CT 22747344 / ConfirmedMouth cancer / SNOMED CT 771386433 / ConfirmedHypothyroidism / SNOMED CT 741593273 / Confirmed,Active Problems (7)Atrial fibrillation High cholesterol HTN (hypertension) Hypothyroidism Mouth cancer Sleep apnea Torn meniscus Continuous: (1) D5w/NaCl 0.45% 1,000 mL 1,000 mL, IntraVENous, 40 mL/Hr PRN: (14) #NaCl 0.9% *FLUSH* inj 10 mL 10 mL, IV Push, See Comment acetaminophen/HYDROcodone 325/7.5 mg tab 2 Tab, Oral, Q4H acetaminophen/HYDROcodone 325/7.5 mg tab 1 Tab, Oral, Q4H acetaminophen/oxyCODONE 325/5 mg tab 1.5 Tab, Oral, Q4H fentaNYL 100 mcg/2 mL inj 25 mcg 0.5 mL, IV Push, Q30Min hydrALAZINE 20 mg/1 mL inj 10 mg 0.5 mL, IV Push, Q6H labetalol 20 mg/4 mL inj *SYRINGE* 5 mg 1 mL, IV Push, Q10Min morphine 2 mg/1 ml cpjt inj 2 mg 1 mL, IV Push, Q1H morphine 4 mg/1 mL cpjt inj 4 mg 1 mL, IV Push, Q1H ondansetron 4 mg tab 4 mg 1 Tab, Oral, Q6H oxyCODONE 5 mg tab 10 mg 2 Tab, Oral, Q4H oxyCODONE 5 mg tab 5 mg 1 Tab, Oral, Q4H promethazine 25 mg/1 mL inj 12.5 mg 0.5 mL, IV Push, Q6H zolpidem 5 mg tab 5 mg 1 Tab, Oral, At Bedtime Problem list: Medical HTN (hypertension) / SNOMED CT 2543488266 / Confirmed Sleep apnea / SNOMED CT 079650136 / Confirmed Atrial fibrillation / SNOMED CT 0828613589 / Confirmed Torn meniscus / SNOMED CT 1846613071 / Confirmed High cholesterol / SNOMED CT 10749011 / Confirmed Mouth cancer / SNOMED CT 958037504 / Confirmed Hypothyroidism / SNOMED CT 120337662 / Confirmed, Active Problems (7) Atrial fibrillation High cholesterol HTN (hypertension) Hypothyroidism Mouth cancer Sleep apnea Torn meniscus ObjectiveVS/MeasurementsVitals Signs (last 24 hrs) Last Charted Minimum MaximumTemp 97.9 (JUL 01 11:15)97.9 (JUL 01 11:15)98.1 (JUN 30 19:30)Apical HR 78 (JUL 01 13:51)68 (JUN 30 21:29)78 (JUL 01 13:51)Mon HR 67 (JUL 01 11:15)62 (JUN 30 16:00)79 (JUL 01 03:30)Resp Rate 16 (JUL 01:15)16 (JUL 01 07:40)16 (JUL 01 07:40)SBP H 171 (JUL 01 11:15)135 (JUN 30 16:00)H 183 (JUL 01 00:00)DBP H 94 (JUL 01:15)64 (JUL 01 03:30)H 94 (JUL 01:15)MAP 113 (JUL 01:15)80 (JUL 01 07:40)119 (JUL 01 03:30)SpO2 96 (JUN 30 19:00)96 (JUN 30 19:00)96 (JUN 30 19:00)General: Alert and oriented, Mild distress.Eye: Pupils are equal, round and reactive to light, Normal conjunctiva.HENT: Normocephalic, S/P Oral surgery.Neck: Supple, Non-tender, No jugular venous distention.Respiratory: Lungs are clear to auscultation, Respirations are non-labored, Breath sounds are equal.Cardiovascular: Normal rate, Regular rhythm, No gallop.Gastrointestinal: Soft, Non-tender, Non-distended, Normal bowel sounds.Musculoskeletal: Normal range of motion, No tenderness.Integumentary: Warm.Neurologic: Alert, Oriented, Normal motor function, No focal deficits.Psychiatric: Cooperative. Integumentary: Warm. Neurologic: Alert, Oriented, Normal motor function, No focal deficits. Psychiatric: Cooperative. Results Review No Radiology Results Found JUL 01 06:42 139 | 102 | 9 / 101 4.2 | 26 | 0.90 \\ JUL 01 06:42 \\ 14.6 / H 11.5 167 / 44.0 \\ Impression and PlanAssessment and Plan: Diagnosis.Accelerated HTN - Adjust Meds - Continue BBlocker and add 2.5 mg of Norvasc.P- A-Fib - now NSR - continue to monitor.HPL / Hypothyroid - continue home MedsOSA - Night use of C-PAPPLAN- ADD CLONIDINE- ON PRN HYDRALAZINE AND LABETALOL- ON NORVASC AND BB- ADD PRN PHENERGAN- SCUDS / PEPCID / PULM TOILET- D/W PATIENT KOMAL - Night use of C-PAP PLAN - ADD CLONIDINE - ON PRN HYDRALAZINE AND LABETALOL - ON NORVASC AND BB - ADD PRN PHENERGAN - SCUDS / PEPCID / PULM TOILET - D/W PATIENT Extracted from: Title: Rx Consult - Author: RY DIAZ Date: 07/01/16 Harman Yeh, RP 61yoM with surgical wound infectionRx Consult: LawnMD: ColinDx: Oral cancer woundwt = 140kgI/O = 1273 / 2700 + 1 BMAllergies (1) ActiveReactionNo Known AllergiesNone Documented JUL 01 06:42 139 | 102 | 9 / 101 4.2 | 26 | 0.90 \\ JUL 01 06:42 \\ 14.6 / H 11.5 167 / 44.0 \\Calc CrCl > 100 ml / min (S-C)Vitals Signs (last 24 hrs) Last Charted Minimum MaximumTemp 97.8 (JUL 01 07:40)97.8 (JUL 01 07:40)98.1 (JUN 30 19:30)Apical HR 75 (JUL 01 10:30)65 (JUN 30 14:55)75 (JUL 01 10:30)Mon HR 75 (JUL 01 07:40)62 (JUN 30 16:00)79 (JUL 01 03:30)Resp Rate 16 (JUL 01 07:40)14 (JUN 30 12:00)16 (JUL 01 07:40)SBP H 153 (JUL 01 07:40)135 (JUN 30 16:00)H 183 (JUL 01 00:00)DBP 65 (JUL 01 07:40)64 (JUL 01 03:30)81 (JUL 01 00:00)MAP 80 (JUL 01 07:40)80 (JUL 01 07:40)119 (JUL 01 03:30)SpO2 96 (JUN 30 19:00)96 (JUN 30 19:00)96 (JUN 30 19:00)Cultures:NonePlan:1) Initiate Unasyn 3 gram IV o3i-Nih CrCl > 100 ml / min2) Stable renal function3) Rx to sign offThank Ry Woodard [facility] JUL 01 06:42 \\ 14.6 / H 11.5 167 / 44.0 \\ Calc CrCl > 100 ml / min (S-C) Vitals Signs (last 24 hrs) Last Charted Minimum Maximum Temp 97.8 (JUL 01 07:40)97.8 (JUL 01 07:40)98.1 (JUN 30 19:30) Apical HR 75 (JUL 01 10:30)65 (JUN 30 14:55)75 (JUL 01 10:30) Mon HR 75 (JUL 01 07:40)62 (JUN 30 16:00)79 (JUL 01 03:30) Resp Rate 16 (JUL 01 07:40)14 (JUN 30 12:00)16 (JUL 01 07:40 ) SBP H 153 (JUL 01 07:40)135 (JUN 30 16:00)H 183 (JUL 01 00:00) DBP 65 (JUL 01 07:40)64 (JUL 01 03:30)81 (JUL 01 00: 00) MAP 80 (JUL 01 07:40)80 (JUL 01 07:40)119 (JUL 01 03 :30) SpO2 96 (JUN 30 19:00)96 (JUN 30 19:00)96 (JUN 30 19: 00) Cultures: None Plan: 1) Initiate Unasyn 3 gram IV q6h -Pts CrCl > 100 ml / min 2) Stable renal function 3) Rx to sign off Thank Ry Woodard RPh Extracted from: Title: JF Daily Note Author: VERENA BURGER Date: 06/30/16 MD Rao-INT SubjectiveHOSPITALIST / INTERNAL MEDICINE CONSULT:61 yr old M - underwent surgery for Oral cancer. We are asked to see for uncontrolled BP.Pt is awake and alert. is at bed side. No CP, No SOB. Quite frustrated for multiple other things. No fever, + Nausia, no vomitting. 61 yr old M - underwent surgery for Oral cancer. We are asked to see for uncontrolled BP. Pt is awake and alert. is at bed side. No CP, No SOB. Quite frustrated for multiple other things. No fever, + Nausia, no vomitting. Health StatusAllergies:Allergic Reactions (Selected)No Known AllergiesCurrent medications: (Selected)Inpatient MedicationsOrderedAfrin 0.05% nasal spray: 2 [place], Nostrils Both, Q7NXsxnk: 1 Gram, 100 mL/Hr, IV Piggyback, Y9GQtjxyhfq 5% with 0.45% NaCl 1,000 mL: 40 mL/Hr, IntraVENousLopressor: 25 mg, Oral, BIDNorco 7.5 mg-325 mg oral tablet: 1 Tab, Oral, Q4H, PRN: Pain (Mild 1-3)Percocet 5/325: 1.5 Tab, Oral, Q4H, PRN: Pain (Moderate 4-6)Zofran: 4 mg, Oral, Q6H, PRN: Nausea/Vomitingacetaminophen-HYDROcodone 325 mg-7.5 mg oral tablet: 2 Tab, Oral, Q4H, PRN: Pain (Moderate 4-6)fentaNYL: 25 mcg, IV Push, Q30Min, PRN: Breakthrough PainhydrALAZINE: 10 mg, IV Push, Q6H, PRN: Hypertensionlabetalol: 5 mg, IV Push, Q10Min, PRN: Hypertensionmorphine: 2 mg, IV Push, Q1H, PRN: Pain (Moderate 4-6)morphine: 4 mg, IV Push, Q1H, PRN: Pain (Severe 7-10)oxyCODONE: 10 mg, Oral, Q4H, PRN: Breakthrough PainoxyCODONE: 5 mg, Oral, Q4H, PRN: Breakthrough Painpropafenone: 150 mg, Oral, V7Ygcztrq chloride 0.9% injectable solution: 10 mL, IV Push, See Comment, PRN: Other (See Comment)Documented MedicationsDocumentedAmbien 10 mg oral tablet: 1 Tab, Oral, At Bedtime, PRN: for sleep, 0 Refill(s)Metoprolol Tartrate 25 mg oral tablet: Tab, Oral, BID, 0 Refill(s)acetaminophen-oxyCODONE 325 mg-7.5 mg oral tablet: Tab, Oral, Q6H, PRN: as needed for pain, 0 Refill(s)aspirin 81 mg oral tablet: 1 Tab, Oral, Daily, 30 Tab, 0 Refill(s)levothyroxine 137 mcg (0.137 mg) oral tablet: 1 Tab, Oral, Daily, 30 Tab, 0 Refill(s)pravastatin 10 mg oral tablet: 1 Tab, Oral, Daily, 30 Tab, 0 Refill(s)propafenone 150 mg oral tablet: Tab, Oral, Q8H, 0 Refill(s),Home Medications (7) Activeacetaminophen-oxyCODONE 325 mg-7.5 mg oral tablet , PRN, Oral, J2MVzjtfv 10 mg oral tablet 10 mg = 1 Tab, PRN, Oral, At Bedtimeaspirin 81 mg oral tablet 81 mg = 1 Tab, Oral, Dailylevothyroxine 137 mcg (0.137 mg) oral tablet 137 mcg = 1 Tab, Oral, DailyMetoprolol Tartrate 25 mg oral tablet , Oral, BIDpravastatin 10 mg oral tablet 10 mg = 1 Tab, Oral, Dailypropafenone 150 mg oral tablet , Oral, F1NMhlnceg list:Active Problems (7)Atrial fibrillation High cholesterol HTN (hypertension) Hypothyroidism Mouth cancer Sleep apnea Torn meniscus Home Medications (7) Active acetaminophen-oxyCODONE 325 mg-7.5 mg oral tablet , PRN, Oral, Q6H Ambien 10 mg oral tablet 10 mg = 1 Tab, PRN, Oral, At Bedtime aspirin 81 mg oral tablet 81 mg = 1 Tab, Oral, Daily levothyroxine 137 mcg (0.137 mg) oral tablet 137 mcg = 1 Tab, Oral, Daily Metoprolol Tartrate 25 mg oral tablet , Oral, BID pravastatin 10 mg oral tablet 10 mg = 1 Tab, Oral, Daily propafenone 150 mg oral tablet , Oral, Q8H Problem list: Active Problems (7) Atrial fibrillation High cholesterol HTN (hypertension) Hypothyroidism Mouth cancer Sleep apnea Torn meniscus ObjectiveVS/MeasurementsVitals Signs (last 24 hrs) Last Charted Minimum MaximumTemp 97.3 (JUN 30 12:00)97.3 (JUN 30 12:00)98.0 (JUN 29 22:30)Apical HR 63 (JUN 30 08:29)62 (JUN 29 20:34)67 (JUN 29 16:33)Mon HR 65 (JUN 30 12:00)60 (JUN 29 15:00)80 (JUN 29 22:15)Resp Rate 14 (JUN 30 12:00)14 (JUN 30 12:00)H 38 (JUN 29:15)SBP H 154 (JUN 30 12:00)121 (JUN 29 16:00)H 186 (JUN 30:15)DBP 79 (JUN 30 12:00)L 54 (JUN 29 16:00)85 (JUN 30:15)MAP 112 (JUN 30 12:00)78 (JUN 29:00)123 (JUN 30:15)SpO2 95 (JUN 30 08:39)L 92 (JUN 29 15:00)98 (JUN 29 18:00)General: Alert and oriented, Mild distress.Eye: Pupils are equal, round and reactive to light, Normal conjunctiva.HENT: Normocephalic, S/P Oral surgery.Neck: Supple, Non-tender, No jugular venous distention.Respiratory: Lungs are clear to auscultation, Respirations are non-labored, Breath sounds are equal.Cardiovascular: Normal rate, Regular rhythm, No gallop.Gastrointestinal: Soft, Non-tender, Non-distended, Normal bowel sounds.Musculoskeletal: Normal range of motion, No tenderness.Integumentary: Warm.Neurologic: Alert, Oriented, Normal motor function, No focal deficits.Psychiatric: Cooperative. Integumentary: Warm. Neurologic: Alert, Oriented, Normal motor function, No focal deficits. Psychiatric: Cooperative. Results Review No Radiology Results FoundNo qualifying data available Impression and PlanAssessment and Plan: Diagnosis.Accelerated HTN - Adjust Meds - Continue BBlocker and add 2.5 mg of Norvasc.P- A-Fib - now NSR - continue to monitor.HPL / Hypothyroid - continue home MedsOSA - Night use of C-PAPPLANAs oputlined above.Check baseline blood work - CBC / BMPMeds reviewed. HPL / Hypothyroid - continue home Meds KOMAL - Night use of C-PAP PLAN As oputlined above. Check baseline blood work - CBC / BMP Meds reviewed. Hospital Discharge Instructions Patient EducationSkin Grafting Squamous Cell Carcinoma"
--- OUTSIDE RECORDS SUMMARY | 2016-08-15 02:06 | External Medical Summary Rpt ---
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 Name Role Phone ELISABET, (REF) PCP [phone] Encounter [facility] [id number] Date(s): 06/25/16 - 07/02/16 [facility] [address] [place] [id number]- Discharge Disposition: IP Self Care / Home [...] Measured Source (06/25/16 2:37 PM) Height Entry [place] Format (06/25/16 2:37 PM) Height/Lengt 73 Inch h CHINESE (06/25/16 2:37 PM) CLINICALHEIG 185.42 cm HT (06/25/16 2:37 PM) Weight Standing scale Source (06/25/16 2:37 PM) Weight Entry [place] Format (06/25/16 2:37 PM) Weight 307 lb Kiswahili lb (06/25/16 2:37 PM) CLINICALWEIG 139.55 kg HT (06/25/16 2:37 PM) Body Surface 2.58 m2 Area (BSA) (06/25/16 2:37 PM) Body Mass 40.6 kg/m2 Index *>HHI* [19.0-24.0 (06/25/16 2:37 PM) kg/m2] [place] Body 79 kg Weight (06/25/16 2:37 PM) [...] 1.26 x10(3)/uL [1.00-3.90 (07/01/16 6:42 AM) x10(3)/uL] [place] % 6.8 % [3.0-9.0 %] (07/01/16 6:42 AM) [place] # 0.78 K/uL [0.16-1.00 (07/01/16 6:42 AM) [...] medications: (Selected)Inpatient MedicationsOrderedAfrin 0.05% nasal spray: 2 [place], Nostrils Both, I6JLzxuis: 5 mg, Oral, At Bedtime, PRN: SleepDextrose 5% with 0.45% NaCl 1,000 mL: 40 mL/Hr, IntraVENousFlorastor: 250 mg, Oral, BIDLopressor: 25 mg, Oral, BIDNorco 7.5 mg-325 mg oral tablet: 1 Tab, Oral, Q4H, PRN: Pain (Mild 1-3)Norvasc: 2.5 mg, Oral, DailyPRAVAstatin: 10 mg, Oral, DailyPepcid: 20 mg, IV Push, H54UZnlnmkfg 5/325: 1.5 Tab, Oral, Q4H, PRN: Pain (Moderate 4-6)Peridex 0.12% mucous membrane liquid: 15 mL, Swish and Spit, QIDPhenergan: 12.5 mg, IV Push, Q6H, PRN: Nausea/VomitingZofran: 4 mg, Oral, Q6H, PRN: Nausea/Vomitingacetaminophen-HYDROcodone 325 mg-7.5 mg oral tablet: 2 Tab, Oral, Q4H, PRN: Pain (Moderate 4-6)ampicillin-sulbactam + Sodium Chloride 0.9% 100 mL: 3 Gram, 200 mL/Hr, IV Piggyback, Z9MfuhSLLhng: 0.05 mg, Oral, TIDfentaNYL: 25 mcg, IV [...] Q4H, PRN: Breakthrough Painpropafenone: 150 mg, Oral, K3Mmnclzr chloride 0.9% injectable solution: 10 mL, IV [...] mg-7.5 mg oral tablet , PRN, Oral, Y9MKtjrha 10 mg oral tablet 10 mg = [...] 0.9% 100 mL 3 Gram, IV Piggyback, O5Rqzsttosywqdaj 0.12% liq 15 mL 15 mL, Swish and Spit, QIDcloNIDine 0.1 mg tab 0.05 mg 0.5 Tab, Oral, TIDfamotidine 20 mg/2 mL inj 20 mg 2 mL, IV Push, N10Nhhmccszthadbi 112 mcg tab 112 mcg 1 Tab, Oral, Dailylevothyroxine 25 mcg tab 25 mcg 1 Tab, Oral, Dailymetoprolol tartrate 25 mg tab 25 mg 1 Tab, Oral, BIDoxymetazoline 0.05% nasal spray 15 mL 2 [place], Nostrils Both, Z9FJGAZZsnoghj sodium 10 mg tab 10 mg 1 Tab, Oral, Dailypropafenone 150 mg tab 150 mg 1 Tab, Oral, Q6Icstvuakrvseoq boulardii 250 mg cap 250 mg 1 Cap, Oral, BIDContinuous: (1)D5w/NaCl 0.45% 1,000 mL 1,000 mL, IntraVENous, 40 mL/HrPRN: (14)#NaCl 0.9% *FLUSH* inj 10 mL 10 mL, IV Push, See Commentacetaminophen/HYDROcodone 325/7.5 mg tab 2 Tab, Oral, L2Otiubxqegxipva/HYDROcodone 325/7.5 mg tab 1 Tab, Oral, K2Rwgjoidpgdrssd/oxyCODONE 325/5 mg tab 1.5 Tab, Oral, I6QzjyqeEKT 100 mcg/2 mL inj 25 mcg 0.5 mL, IV Push, Q56VfqiqylPBSNPKN 20 mg/1 mL inj 10 mg 0.5 mL, IV Push, D9Vpzoqdjcjj 20 mg/4 mL inj *SYRINGE* 5 mg 1 mL, IV Push, W24Gzndmzrvdkj 2 mg/1 ml cpjt inj 2 mg 1 mL, IV Push, Z7Lkiimeebm 4 mg/1 mL cpjt inj 4 mg 1 mL, IV Push, K1Cjrrjghvrcdt 4 mg tab 4 mg 1 Tab, Oral, W5RdpoJBQUNP 5 mg tab 10 mg 2 Tab, Oral, O6VygtXREITA 5 mg tab 5 mg 1 Tab, Oral, T2Pnhccgwdksgmu 25 mg/1 mL inj 12.5 mg 0.5 mL, IV Push, W1Mzjjdzilf 5 mg tab 5 mg 1 Tab, Oral, At BedtimeProblem list:MedicalHTN (hypertension) / SNOMED CT 3339960634 / ConfirmedSleep apnea / SNOMED CT 198587589 / ConfirmedAtrial fibrillation / SNOMED CT 0842478273 / ConfirmedTorn meniscus / SNOMED CT 3662505686 / ConfirmedHigh cholesterol / SNOMED CT 65884294 / ConfirmedMouth cancer / SNOMED CT 790014314 / ConfirmedHypothyroidism / SNOMED CT 583808723 / Confirmed,Active Problems (7)Atrial fibrillation High cholesterol [...] list: Medical HTN (hypertension) / SNOMED CT 2458057701 / Confirmed Sleep apnea / SNOMED CT 659543964 / Confirmed Atrial fibrillation / SNOMED CT 3316878153 / Confirmed Torn meniscus / SNOMED CT 2549559731 / Confirmed High cholesterol / SNOMED CT 13163591 / Confirmed Mouth cancer / SNOMED CT 650731075 / Confirmed Hypothyroidism / SNOMED CT 727754724 / Confirmed, Active Problems (7) Atrial fibrillation [...] for bp check in 1-2 weeksd//w patient KOMAL - Night use of C-PAP PLAN off [...] medications: (Selected)Inpatient MedicationsOrderedAfrin 0.05% nasal spray: 2 [place], Nostrils Both, Q1WNgmcpu: 5 mg, Oral, At Bedtime, PRN: SleepDextrose [...] mL: 3 Gram, 200 mL/Hr, IV Piggyback, P0CgiqIXMtck: 0.05 mg, Oral, TIDfentaNYL: 25 mcg, IV [...] Q4H, PRN: Breakthrough Painpropafenone: 150 mg, Oral, O6Lgmulev chloride 0.9% injectable solution: 10 mL, IV [...] mg-7.5 mg oral tablet , PRN, Oral, E6LFcnohg 10 mg oral tablet 10 mg = [...] 0.9% 100 mL 3 Gram, IV Piggyback, U0Pwdiovotsnjwtt 0.12% liq 15 mL 15 mL, Swish and Spit, QIDcloNIDine 0.1 mg tab 0.05 mg 0.5 Tab, Oral, TIDlevothyroxine 112 mcg tab 112 mcg 1 Tab, Oral, Dailylevothyroxine 25 mcg tab 25 mcg 1 Tab, Oral, Dailymetoprolol tartrate 25 mg tab 25 mg 1 Tab, Oral, BIDoxymetazoline 0.05% nasal spray 15 mL 2 [place], Nostrils Both, C6RYOMRSpsdahn sodium 10 mg tab 10 mg 1 Tab, Oral, Dailypropafenone 150 mg tab 150 mg 1 Tab, Oral, W1SBvqrppokvk: (1)D5w/NaCl 0.45% 1,000 mL 1,000 mL, IntraVENous, 40 mL/HrPRN: (14)#NaCl 0.9% *FLUSH* inj 10 mL 10 mL, IV Push, See Commentacetaminophen/HYDROcodone 325/7.5 mg tab 2 Tab, Oral, K0Mdfgmdqvgtvbjs/HYDROcodone 325/7.5 mg tab 1 Tab, Oral, N2Sxqddfhmkbvpgh/oxyCODONE 325/5 mg tab 1.5 Tab, Oral, R4RmktvhJQM 100 mcg/2 mL inj 25 mcg 0.5 mL, IV Push, A74SofhuxrKCPJXWR 20 mg/1 mL inj 10 mg 0.5 mL, IV Push, N1Nwirdvvrev 20 mg/4 mL inj *SYRINGE* 5 mg 1 mL, IV Push, A88Rlepvmzprqs 2 mg/1 ml cpjt inj 2 mg 1 mL, IV Push, M9Fljmgkruj 4 mg/1 mL cpjt inj 4 mg 1 mL, IV Push, T4Zewqitlghzfm 4 mg tab 4 mg 1 Tab, Oral, I9InlfSOPOTC 5 mg tab 10 mg 2 Tab, Oral, L4YyxhUTKFFQ 5 mg tab 5 mg 1 Tab, Oral, Z9Oythhcuchqgop 25 mg/1 mL inj 12.5 mg 0.5 mL, IV Push, U2Owauitmkx 5 mg tab 5 mg 1 Tab, Oral, At BedtimeProblem list:MedicalHTN (hypertension) / SNOMED CT 7961855152 / ConfirmedSleep apnea / SNOMED CT 520597534 / ConfirmedAtrial fibrillation / SNOMED CT 3070587051 / ConfirmedTorn meniscus / SNOMED CT 1214663365 / ConfirmedHigh cholesterol / SNOMED CT 53925519 / ConfirmedMouth cancer / SNOMED CT 443228830 / ConfirmedHypothyroidism / SNOMED CT 275937922 / Confirmed,Active Problems (7)Atrial fibrillation High cholesterol [...] list: Medical HTN (hypertension) / SNOMED CT 8678156038 / Confirmed Sleep apnea / SNOMED CT 716706411 / Confirmed Atrial fibrillation / SNOMED CT 5562396681 / Confirmed Torn meniscus / SNOMED CT 6737248200 / Confirmed High cholesterol / SNOMED CT 06663047 / Confirmed Mouth cancer / SNOMED CT 776102740 / Confirmed Hypothyroidism / SNOMED CT 130347568 / Confirmed, Active Problems (7) Atrial fibrillation [...] 30 19:00)Cultures:NonePlan:1) Initiate Unasyn 3 gram IV l9k-Juq CrCl > 100 ml / min2) Stable renal function3) Rx to sign offThank Ry Woodard [facility] JUL 01 06:42 \\ 14.6 / H [...] medications: (Selected)Inpatient MedicationsOrderedAfrin 0.05% nasal spray: 2 [place], Nostrils Both, J2JRuluc: 1 Gram, 100 mL/Hr, IV Piggyback, G4OOwejmmys 5% with 0.45% NaCl 1,000 mL: 40 [...] Q4H, PRN: Breakthrough Painpropafenone: 150 mg, Oral, X7Bukoovl chloride 0.9% injectable solution: 10 mL, IV [...] mg-7.5 mg oral tablet , PRN, Oral, T1EUnwfby 10 mg oral tablet 10 mg = 1 Tab, PRN, Oral, At Bedtimeaspirin 81 mg oral tablet 81 mg = 1 Tab, Oral, Dailylevothyroxine 137 mcg (0.137 mg) oral tablet 137 mcg = 1 Tab, Oral, DailyMetoprolol Tartrate 25 mg oral tablet , Oral, BIDpravastatin 10 mg oral tablet 10 mg = 1 Tab, Oral, Dailypropafenone 150 mg oral tablet , Oral, T3RKqbgzxv list:Active Problems (7)Atrial fibrillation High cholesterol HTN [...]
--- OUTSIDE RECORDS SUMMARY | 2016-08-15 02:07 | External Medical Summary Rpt ---
Demographics Preferred Language Portuguese Marital Status Unknown Mandaen Affiliation Unknown Race Unknown Ethnic Group Unknown Author Author , Organization [employer] Address Unknown Phone Unavailable Purpose Continuity of Care Document - through 2016 Immunization No patient found.
--- OUTSIDE RECORDS SUMMARY | 2016-08-15 02:07 | External Medical Summary Rpt ---
Demographics Preferred Language Kiswahili Marital Status Unknown Nondenominational Affiliation Unknown Race Unknown Ethnic Group Unknown Author Author , Organization [employer] Address Unknown Phone Unavailable Purpose Continuity of Care Document - through 2016 Immunization No patient found.
--- OUTSIDE RECORDS SUMMARY | 2016-08-15 02:07 | External Medical Summary Rpt ---
Author Author [employer] Organization [employer] Address Unknown Phone Unavailable Purpose Continuity of Care Document - through 2016
--- OUTSIDE RECORDS SUMMARY | 2016-08-15 02:07 | External Medical Summary Rpt ---
Author Author , Organization [employer] Address Unknown Phone Unavailable Purpose Continuity of Care Document - through 2016 Problems Code Diagnosis DOS Provider Status R11.10 VOMITING, UNSPECIFIED S83.92XA SPRAIN OF UNSPECIFIED SITE OF LEFT KNEE, INITIAL ENCOUNTER
--- OUTSIDE RECORDS SUMMARY | 2016-08-15 02:07 | External Medical Summary Rpt ---
Author Author [employer] Land[employer], [employer] Organization [employer] Address Unknown Phone Unavailable Results MR CARD F/ MORPH W/CON Observa Value Referen Units Interpr Notes Date tion ce etation Range BEACHE, No No No No Mar 28 informa informa informa informa 2012 GARTH\. tion in tion in tion in tion in 2:29 AM br\\.br source source source source \EXAM data data data data DESCRIP TION: MR CARD F/ MORPH W/CON34 [id number]\ .br\ FINAL REPORT- ELECTRO NICALLY SIGNED \ .br\\.b r\ACCES DUNG #[id number] 0\.br\\ .br\\.b r\ACCES DUNG NUMBER: [id number] \.br\\. br\DATE : 013 9:53 AM\.br\ \.br\Ex am: MR CARD F/ MORPH W/CON.\ .br\\.b r\Histo ry: Ventric ular arrhyth issa.\.b r\\.br\ Compari son: None\.b r\\.br\ Technic al factors : HASTE black blood anatomi c imaging , brittni FISP white\. br\bloo d cine left ventric ular functio n qualita tive analysi s, and gadolin ium\.br \post contras t imaging were done using a Siemens 1.5 T system. Special \.br\fu nction analysi s was done using tagged imaging .\.br\\ .br\Fin dings: LV septum 11.3 mm, and free wall 8.6 mm. Right ventric ular wall\.b r\3 mm. No evidenc e for segment al wall motion abnorma lity, right ventric ular\.b r\wall or left ventric ular wall. No abnorma l fat along the right ventric ular\.b r\wall. LV cavity 4.6 CM and RV cavity 4.4 CM, at the mid ventric ular level.\ .br\Paco ntitati ve ejectio n fractio ns not evaluat ed, related to technic al\.br\ capabil ities. Post-ga doliniu m analysi s reveale d no evidenc e for myocard ial\.br \hyper enhance ment. No wall functio n abnorma lity by tagged imaging .\.br\\ .br\\.b r\Impre ssion:\ .br\\.b r\1. Wall thickne ss of the left ventric ular septum and free wall are normal. \.br\\. br\2. Right ventric ular wall thickne ss within normal limits. No abnorma l cine\.b r\funct ion of the right ventric ular wall. For the portion s of the right\. br\vent ricular wall that were accessi ble via short axis tagged imaging , there\. br\was no abnorma l wall functio n.\.br\ \.br\3. Post postgad olinium examina tion reveale d no evidenc e of myocard ial\.br \fibros is, within the right ventric ular wall or left ventric ular wall.\. br\\.br \4. Althoug h the right ventric ular cavity look qualita tively somewha t\.br\l arge, when compare d to the left ventric le cavity, it was of smaller \.br\di mension .\.br\\ .br\\.b r\\.br\ Signed by Umesh Stubbs M.D. on 013 2:27 PM\.br\
--- OUTSIDE RECORDS SUMMARY | 2016-08-15 02:07 | External Medical Summary Rpt ---
[...] DESCRIP TION: MR CARD F/ MORPH W/CON34 [id number]\ .br\ FINAL REPORT- ELECTRO NICALLY SIGNED \ .br\\.b r\ACCES DUNG #[id number] 0\.br\\ .br\\.b r\ACCES DUNG NUMBER: [id number] \.br\\. br\DATE : 013 9:53 AM\.br\ \.br\Ex [...]
--- OUTSIDE RECORDS SUMMARY | 2016-08-15 03:31 | External Medical Summary Rpt ---
Demographics Preferred Language Divehi Marital Status Unknown Sabianist Affiliation Unknown Race Unknown Ethnic Group Unknown Author Author , Organization [employer] Address Unknown Phone Unavailable Purpose Continuity of Care Document - through 2016 Immunization No patient found.
--- OUTSIDE RECORDS SUMMARY | 2016-08-15 03:31 | External Medical Summary Rpt ---
Demographics Preferred Language Uzbek Marital Status Unknown Rastafarian Affiliation Unknown Race Unknown Ethnic Group Unknown Author Author , Organization [employer] Address Unknown Phone Unavailable Purpose Continuity of Care Document - through 2016 Immunization No patient found.
== END 2016-08-07 10:15 | disposition home or self-care (01) ==
LOC: ER 21:20 → 2ND 08-05 10:01 → ICU 08-05 10:03 → 2ND 08-05 12:11
PROVIDERS: Emergency Medicine; Internal Medicine Adolescent Medicine
DX: E86.0 Dehydration (principal); R19.7 Diarrhea, unspecified
CPT/HCPCS: G0378; J2405

== ENCOUNTER 2016-12-18 11:24 | Outpatient (CLI) | payer OTHER ==
[~2016-12-18 11:24] MED LIST changes: +AMBIEN 10MG TAB10 MG PO; +AUGMENTIN 875-1 EACH PO; +FLAGYL500 M1 PO; +FLORASTOR250 M1 PO; +LOMOTIL 0.025 M1 TAB PO; +METOPROLOL SUCC25 M1 PO; +METOPROLOL SUCC25 M2 PO; +NORCO 325 MG-51 TAB PO; +PREDNISONE 20MG20 MG PO; +PROMETHEGAN25 MG PO
[2016-12-18 11:50] VITALS: BP 122/66
[2016-12-18 12:00] LABS: HEMOGLOBIN 12.1 g/dL (14.1-18.0); LYMPH # 0.5 K/mm3 (0.7-4.5); LYMPH % 6.8 % (10-50)
[2016-12-18 12:18] LABS: NEUTROPHILS 88 % (42-76)
[2016-12-18 12:30] VITALS: BP 118/60
[2016-12-18 12:30] LABS: BUN 14 mg/dL (7-18)
[2016-12-18 12:33] LABS: GFR (ESTIMATED) 62 ML/MIN (>60)
[2016-12-18 13:18] LABS: URINE BILIRUBIN - DIPSTICK NEGATIVE (NEG); URINE BLOOD NEGATIVE (NEG)
[2016-12-18 13:30] VITALS: BP 118/70
[2016-12-18 14:30] VITALS: BP 123/70
[2016-12-18 15:10] VITALS: BP 122/70
[2016-12-18 15:40] VITALS: BP 123/70
== END 2016-12-18 15:50 | disposition home or self-care (01) ==
LOC: COP 11:24
PROVIDERS: Internal Medicine Adolescent Medicine
DX: C06.9 Malignant neoplasm of mouth, unspecified (principal); I95.1 Orthostatic hypotension
CPT/HCPCS: J2405